=== PATIENT | female | born 1980 | race Caucasian/White ===

== ENCOUNTER 2021-07-10 19:50 | Emergency (ER) | payer OTHER | END 2021-07-11 00:01 | disposition home or self-care (01) | LOC: ER1 19:50 | DX: U07.1 COVID-19 (principal); F17.200 Nicotine dependence, unspecified, uncomplicated | CPT/HCPCS: 99283; U0002 ==

== ENCOUNTER 2021-07-14 14:01 | Emergency (ER) | payer SELFPAY ==
[2021-07-14] MEDS ORDERED: AMOXICILLIN875 MG PO (15:07)
== END 2021-07-14 18:01 | disposition home or self-care (01) ==
LOC: ER1 14:01
DX: U07.1 COVID-19 (principal); H66.92 Otitis media, unspecified, left ear; F17.200 Nicotine dependence, unspecified, uncomplicated
CPT/HCPCS: 99283